=== PATIENT | male | born 1940 | race Caucasian/White ===

== ENCOUNTER 2020-12-10 21:40 | Inpatient (IN) | payer MEDICARE ==
[~2020-12-10] VITALS: Ht 172.7 cm; Wt 78.5 kg
[~2020-12-10 21:40] MED LIST: ARICEPT10 MG PO; FLOMAX 0.4 MG0.4 MG PO; NAMENDA5 MG PO; NORVASC 5 MG TAB5 MG PO; PROSCAR5 MG PO; TYLENOL 325MG325 MG PO; VITAMIN D32000 UNI1 PO; [UNRECOGNIZED DRUG - OTHER] PO
[2020-12-10 23:17] LABS: HEMOGLOBIN 12.6 gm/dl (14.0-17.5); RED BLOOD COUNT 4.31 M/UL (4.20-5.50); WHITE BLOOD COUNT 8.4 K/UL (4.5-11.0)
[2020-12-10 23:36] LABS: BUN/CREATININE RATIO 19 (0-10)
[2020-12-11] MEDS ORDERED: ECOTRIN81 MG PO (09:26)
[2020-12-11] MEDS ORDERED: CRESTOR5 MG PO (09:27)
[2020-12-11] MEDS ORDERED: NAMENDA XR28 MG PO (09:28)
[2020-12-11] MEDS ORDERED: PROSCAR 5 MG TAB5 MG PO (09:28)
[2020-12-11] MEDS ORDERED: ARICEPT10 MG PO (09:29)
[2020-12-11] MEDS ORDERED: VITAMIN D250 MCG PO (09:30)
[2020-12-12 08:58] LABS: HEMOGLOBIN 15.3 gm/dl (14.0-17.5); RED BLOOD COUNT 5.41 M/UL (4.20-5.50); WHITE BLOOD COUNT 10.1 K/UL (4.5-11.0)
[2020-12-12] MEDS ORDERED: AZITHROMYCIN250 MG PO (17:05)
[2020-12-12] MEDS ORDERED: DECADRON4 MG PO (17:05)
== END 2020-12-12 18:19 | disposition home or self-care (01) | DRG 177 ==
LOC: ER1 21:40 → MED SURG 4 12-11 00:35 → CDU 12-11 00:35 → MED SURG 4 12-11 08:20
PROVIDERS: Physician Assistant; ADMIT Internal Medicine
PROC: 8E0ZXY6 Isolation (ICD-10-PCS; principal; 2020-12-11)
DX: U07.1 COVID-19 (principal); G93.41 Metabolic encephalopathy; E87.2 Acidosis; J20.9 Acute bronchitis, unspecified; I12.9 Hypertensive chronic kidney disease with stage 1 through stage 4 chronic kidney disease, or unspecified chronic kidney disease; F03.90 Unspecified dementia, unspecified severity, without behavioral disturbance, psychotic disturbance, mood disturbance, and anxiety; M19.90 Unspecified osteoarthritis, unspecified site; I25.10 Atherosclerotic heart disease of native coronary artery without angina pectoris; N40.0 Benign prostatic hyperplasia without lower urinary tract symptoms; Z96.619 Presence of unspecified artificial shoulder joint; N18.30 Chronic kidney disease, stage 3 unspecified; I10 Essential (primary) hypertension; Z90.49 Acquired absence of other specified parts of digestive tract; Z72.0 Tobacco use
CPT/HCPCS: 0240U; 36415; 70450; 71045; 80048; 80053; 81001; 82550; 82553; 83605; 83874; 83880; 84484; 85025; 85610; 85652; 85730; 86140; 87040; 87086; 93005; 94760; 96374; 99285; J0456; J0696; J1100; J1650; J3486; J7030

== ENCOUNTER → 2021-08-11 | Outpatient (CLI) | payer MEDICARE ==
[~2021-08-11] MED LIST changes: +AZITHROMYCIN250 MG PO; +CRESTOR5 MG PO; +DECADRON4 MG PO; +ECOTRIN81 MG PO; +NAMENDA XR28 MG PO; +PROSCAR 5 MG TAB5 MG PO; +VITAMIN D250 MCG PO
== END ==
LOC: LAB 09:51
PROVIDERS: Family Medicine
DX: E78.5 Hyperlipidemia, unspecified (principal)
CPT/HCPCS: 80053; 80061

== ENCOUNTER 2021-10-28 15:12 | Observation (INO) | payer MEDICARE ==
[~2021-10-28] VITALS: Ht 177.8 cm; Wt 76.2 kg
[~2021-10-28 15:12] MED LIST changes: -CRESTOR5 MG PO
[2021-10-28 16:01] LABS: HEMOGLOBIN 13.8 gm/dl (14.0-17.5); RED BLOOD COUNT 4.84 M/UL (4.20-5.50); WHITE BLOOD COUNT 10.2 K/UL (4.5-11.0)
[2021-10-28 16:31] LABS: BUN/CREATININE RATIO 20 (0-10)
[2021-10-29 06:25] LABS: HEMOGLOBIN 12.1 gm/dl (14.0-17.5)
[2021-10-29 06:26] LABS: RED BLOOD COUNT 4.31 M/UL (4.20-5.50); WHITE BLOOD COUNT 7.5 K/UL (4.5-11.0)
[2021-10-29 06:48] LABS: BUN/CREATININE RATIO 17 (0-10)
[2021-10-29] MEDS ORDERED: CRESTOR5 MG PO (09:27)
[2021-10-29] MEDS ORDERED: SERTRALINE HCL50 MG PO (15:11)
[2021-10-29] MEDS ORDERED: SEROQUEL25 MG PO (15:12)
[2021-10-29] MEDS ORDERED: ELDERBERRY-VIT1 EACH PO (15:13)
[2021-10-29] MEDS ORDERED: LATANOPROST2.5 ML OU (15:13)
[2021-10-30 07:03] LABS: HEMOGLOBIN 11.8 gm/dl (14.0-17.5); RED BLOOD COUNT 4.28 M/UL (4.20-5.50); WHITE BLOOD COUNT 6.5 K/UL (4.5-11.0)
[2021-10-30] MEDS ORDERED: TAMIFLU 30 MG CAP PO (08:19)
[2021-10-30] MEDS ORDERED: CEFUROXIME250 MG PO (08:19)
--- NOTE | 2021-10-30 09:30 | NUR ---
velasco catheter discontinued with 350 of [place] colored urine in bag. patient tolerated well.
--- NOTE | 2021-10-30 12:39 | NUR ---
pt has ambulated to the restroom he has voided and has had a bowel movement tolerated well.
--- NOTE | 2021-10-30 13:06 | NUR ---
IV D/C'D X 1 PT TOLERATED WELL. D/C INSTRUCTIONS EXPLAINED PT AND FAMILY VERBALIZED UNDERSTANDING SCRIPTS IN HAND AWAITING TRANSPORTER.
== END 2021-10-30 16:27 | disposition home or self-care (01) ==
LOC: ER1 15:12 → CDU 18:46 → MED SURG 4 18:46
PROVIDERS: Emergency Medicine; ADMIT Internal Medicine
DX: J10.1 Influenza due to other identified influenza virus with other respiratory manifestations (principal); J40 Bronchitis, not specified as acute or chronic; Z20.822 Contact with and (suspected) exposure to COVID-19; F03.90 Unspecified dementia, unspecified severity, without behavioral disturbance, psychotic disturbance, mood disturbance, and anxiety; Z66 Do not resuscitate; I25.10 Atherosclerotic heart disease of native coronary artery without angina pectoris; I12.9 Hypertensive chronic kidney disease with stage 1 through stage 4 chronic kidney disease, or unspecified chronic kidney disease; N18.30 Chronic kidney disease, stage 3 unspecified; M19.90 Unspecified osteoarthritis, unspecified site; N40.0 Benign prostatic hyperplasia without lower urinary tract symptoms; E78.5 Hyperlipidemia, unspecified; I95.9 Hypotension, unspecified; E86.0 Dehydration; T83.098A Other mechanical complication of other urinary catheter, initial encounter; Y73.2 Prosthetic and other implants, materials and accessory gastroenterology and urology devices associated with adverse incidents; Z79.82 Long term (current) use of aspirin; Z79.899 Other long term (current) drug therapy; Z95.5 Presence of coronary angioplasty implant and graft
CPT/HCPCS: 0240U; 36415; 51701; 71045; 80048; 80053; 81001; 82550; 82553; 83605; 83880; 84484; 85025; 85027; 87040; 93005; 96372; 96374; 96375; 99285; G0378; J0696; J1335; J1644; J7030

== ENCOUNTER 2022-04-26 11:35 | Emergency (ER) | payer MEDICARE ==
[~2022-04-26] VITALS: Ht 175.3 cm; Wt 81.6 kg
[~2022-04-26 11:35] MED LIST changes: +CEFUROXIME250 MG PO; +CRESTOR5 MG PO; +ELDERBERRY-VIT1 EACH PO; +LATANOPROST2.5 ML OU; +SEROQUEL25 MG PO; +SERTRALINE HCL50 MG PO; +TAMIFLU 30 MG CAP PO
[2022-04-26 12:22] LABS: HEMOGLOBIN 13.8 gm/dl (14.0-17.5); RED BLOOD COUNT 4.83 M/UL (4.20-5.50); WHITE BLOOD COUNT 13.8 K/UL (4.5-11.0)
[2022-04-26] MEDS ORDERED: MULTIVITAMIN1 EACH PO (15:53)
== END 2022-04-26 22:18 | disposition short-term general hospital (02) ==
LOC: ER1 11:35 → CDU 14:48 → ER1 14:48
PROVIDERS: Physician Assistant
DX: E86.0 Dehydration (principal); R53.1 Weakness; N13.2 Hydronephrosis with renal and ureteral calculous obstruction; R79.89 Other specified abnormal findings of blood chemistry; R31.9 Hematuria, unspecified; F03.90 Unspecified dementia, unspecified severity, without behavioral disturbance, psychotic disturbance, mood disturbance, and anxiety; I10 Essential (primary) hypertension; E78.5 Hyperlipidemia, unspecified; Z95.5 Presence of coronary angioplasty implant and graft; Z90.49 Acquired absence of other specified parts of digestive tract; M06.9 Rheumatoid arthritis, unspecified; Z90.89 Acquired absence of other organs
CPT/HCPCS: 70450; 71045; 80053; 81001; 82550; 82553; 82607; 83036; 83540; 83550; 83735; 84439; 84443; 84484; 85025; 87040; 87086; 93005; 93880; 96361; 96365; 99285; J0696